=== PATIENT | female | born 1985 | race Two or more races ===

== ENCOUNTER 2017-06-03 11:38 | Emergency (ER) | payer MEDICAID ==
[~2017-06-03] VITALS: Ht 152.4 cm; Wt 74.8 kg
[2017-06-03 11:45] VITALS: BP 112/67
== END 2017-06-03 14:30 | disposition left against medical advice (07) ==
LOC: ER 11:38
DX: M79.672 Pain in left foot (principal); Z53.21 Procedure and treatment not carried out due to patient leaving prior to being seen by health care provider